=== PATIENT | male | born 1930 | race Caucasian/White ===

== ENCOUNTER 2017-07-20 16:04 | Outpatient (CLI) | payer MEDICARE, OTHER | END 2017-07-20 16:05 | disposition EMS.NT | LOC: EMS 16:04 | PROVIDERS: ATTEND Surgery | DX: Z03.89 Encounter for observation for other suspected diseases and conditions ruled out (principal) ==

== ENCOUNTER 2017-07-21 12:48 | Emergency (ER) | payer MEDICARE, OTHER ==
[2017-07-21 13:00] VITALS: BP 176/85
--- NOTE | 2017-07-21 13:34 | XRAY Report ---
EXAM: RIGHT SHOULDER RADIOGRAPHY EXAM DATE: 07/21/2017 01:27 PM. CLINICAL HISTORY: Right shoulder pain. COMPARISON: None. TECHNIQUE: 3 views. FINDINGS: Bones: No acute fracture or bony lesion. Type 1/2 acromion. Degenerative osteophyte formation. Joints: Normal alignment. Moderate to marked narrowing of the right acromioclavicular and mild narrow ing of the right glenohumeral joint. No dislocation. Soft tissues: Right shoulder calcific tendinosis. Peripheral interstitium of the right lung is promin ent. Right ribs are unremarkable. IMPRESSION: 1. No acute osseous abnormalities. Normal alignment. 2. Degenerative changes of the right shoulder. 3. Right shoulder calcific tendinosis. [facility] Referring Provider Line: [phone] SITE ID: [id number]
--- NOTE | 2017-07-21 15:01 | ED Physician Documentation ---
PD HPI UPPER EXT INJURY - Stated complaint Stated Complaint: SHOULDER PX - Chief complaint Chief Complaint: Ext Problem - History obtained from History obtained from: Patient - History of Present Illness Location: Right, Shoulder Type of injury: No: Fall, Twist, Blunt / blow Where injury occurred: Home Timing - onset: How many days ago (3 days of pain in right posterior shoulder. Denies chest pain. No noted injury. Hurts with reaching out and up. He called PMD office and referred to ER. Notes some mild cough but no fevers, dyspnea, lightheadedness.) Timing - duration: Days Timing - details: Gradual onset, Still present, Waxing and waning Worsened by: Moving. No: Palpating Associated symptoms: No: Weakness, Numbness, Swelling, Discolored Similar symptoms before: Has not had sx before Recently seen: Not recently seen Review of Systems Constitutional: denies: Fever, Chills Nose: denies: Rhinorrhea / runny nose, Congestion Throat: denies: Sore throat Cardiac: denies: Chest pain / pressure, Palpitations Respiratory: reports: Wheezing. denies: Dyspnea, Cough GI: denies: Nausea, Vomiting, Diarrhea Skin: denies: Rash Neurologic: denies: Generalized weakness, Focal weakness, Numbness, Altered mental status PD PAST MEDICAL HISTORY - Past Medical History Past Medical History: Yes Cardiovascular: High cholesterol, Other Respiratory: Asthma Neuro: Dementia Other Past Medical History: hx of stroke (3) - Past Surgical History Past Surgical History: Yes Cardiovascular: Other - Present Medications Home Medications: Ambulatory Orders Medication Instructions Recorded Confirmed Albuterol Sulf [Ventolin Hfa 1 - 2 puffs INH Q4HR PRN #1 inhaler 07/21/17 Inhaler] Aspirin [Adult Aspirin Regimen] 81 mg PO DAILY 07/21/17 07/21/17 Atorvastatin [Lipitor] 10 mg ORAL DAILY 07/21/17 07/21/17 Dexamethasone [Decadron] 4 mg PO DAILY #5 tablet 07/21/17 - Allergies Allergies/Adverse Reactions: Allergies Allergy/AdvReac Type Severity Reaction Status Date / Time No Known Drug Allergies Allergy Verified 07/21/17 13:00 - Social History Does the pt smoke?: No Smoking Status: Never smoker Does the pt drink ETOH?: No Does the pt have substance abuse?: No - Immunizations Immunizations are current?: Yes - POLST Patient has POLST: No PD ED PE NORMAL - Vitals Vital signs reviewed: Yes - General General: Alert and oriented X 3, No acute distress, Well developed/nourished - HEENT HEENT: Pharynx benign - Neck Neck: Supple, no meningeal sign, No bony TTP, No adenopathy - Cardiac Cardiac: RRR, No murmur - Respiratory Respiratory: No: Clear bilaterally (no coarse sounds but does have mild general wheezing. ) - Abdomen Abdomen: Soft, Non tender - Back Back: No CVA TTP - Derm Derm: Normal color, Warm and dry, No rash - Extremities Extremities: Other (riht suprascapular area with some local tenderness. Pain in that area with reaching arm backward and abduction. Not hurting with internal nor external rotation with arm to side. ) - Neuro Neuro: Alert and oriented X 3, No motor deficit, Normal speech Results - Vitals Vitals: Oxygen O2 Source Room air - Rads (name of study) shoulder right Radiology: Prelim report reviewed (arthritic changes; no acute fractures), EMP read contemporaneously PD MEDICAL DECISION MAKING - ED course Complexity details: reviewed results, considered differential (sounds like muscular shoulder pain and not the joint itself and does not seem pleuritic. Shoulder xray done but does show the majority oflung on that side which is normal. ), d/w patient, d/w family Departure - Departure Disposition: 01 Home, Self Care Clinical Impression: Wheezing Shoulder pain, acute Qualifiers: Laterality: right Qualified Code(s): M25.511 - Pain in right shoulder Condition: Stable Record reviewed to determine appropriate education?: Yes Instructions: ED Shoulder Pain [facility] Follow-Up: Nuris Byrne PA-C [Primary Care Provider] - Prescriptions: Albuterol Sulf [Ventolin Hfa Inhaler] 1 - 2 puffs INH Q4HR PRN #1 inhaler PRN Reason: Shortness Of Air/Wheezing Dexamethasone [Decadron] 4 mg PO DAILY #5 tablet Comments: His shoulder seems okay at this point. It does not sound like lung or other referred type pains. Given that he has had sounds of wheezing over the recent past, we can give an albuterol inhaler 2 puffs 2 or 3 times a day for the next week or 2. Decadron daily for 5 more days can help with pain in the shoulder if it is due to arthritis and can also help with some of the wheezing. Follow- up with your primary care later this week, call for an appointment. Add Tylenol or ibuprofen type medicines if needed for the shoulder pain. Discharge Date/Time: 07/21/17 15:33
[2017-07-21] MEDS ORDERED: DEXAMETHASONE 10 MG/ML VIAL PO STA (15:15)
[2017-07-21] MEDS ORDERED: CHERRY SYRUP 10 ML UDC PO ONE (15:33)
== END 2017-07-21 15:33 | disposition home or self-care (01) ==
LOC: ED 12:48
DX: M25.511 Pain in right shoulder (principal); R06.2 Wheezing; F03.90 Unspecified dementia, unspecified severity, without behavioral disturbance, psychotic disturbance, mood disturbance, and anxiety; E78.00 Pure hypercholesterolemia, unspecified; Z86.73 Personal history of transient ischemic attack (TIA), and cerebral infarction without residual deficits; Z79.82 Long term (current) use of aspirin
CPT/HCPCS: 73030; 99283; A9270

== ENCOUNTER 2017-11-21 11:02 | Outpatient (CLI) | payer MEDICARE, OTHER ==
[2017-11-21 18:24] LABS: ALBUMIN 3.6 g/dL (3.2-5.5); ALBUMIN/GLOBULIN RATIO 1.2 (1.0-2.2); BILIRUBIN,TOTAL 0.8 mg/dL (0.2-1.0); CALCIUM 8.6 mg/dL (8.5-10.3); CREATININE 1.1 mg/dL (0.6-1.2); TOTAL PROTEIN 6.5 g/dL (6.7-8.2)
[2017-11-21 18:36] LABS: BASOPHILS # (AUTO) 0.1 10^3/uL (0.0-0.1); BASOPHILS % (AUTO) 0.9 %; EOSINOPHILS # (AUTO) 0.3 10^3/uL (0.0-0.7); EOSINOPHILS % (AUTO) 4.5 %; HGB - HEMOGLOBIN 13.7 g/dL (14.0-18.0); LYMPHOCYTES # (AUTO) 1.6 10^3/uL (1.5-3.5); LYMPHOCYTES % (AUTO) 21.5 %; MEAN CORPUSCULAR HEMOGLOBIN 32.2 pg (27.0-31.0); MEAN CORPUSCULAR HGB CONC 32.7 g/dL (32.0-36.0); MEAN CORPUSCULAR VOLUME 98.5 fL (80.0-94.0); MONOCYTES # (AUTO) 0.7 10^3/uL (0.0-1.0); MONOCYTES % (AUTO) 9.7 %; NEUTROPHILS # (AUTO) 4.6 10^3/uL (1.5-6.6); NEUTROPHILS % (AUTO) 63.4 %; RED BLOOD COUNT 4.27 10^6/uL (4.70-6.10); RED CELL DISTRIBUTION WIDTH 13.1 % (12.0-15.0); WHITE BLOOD COUNT 7.3 x10^3/uL (4.8-10.8)
[2017-11-21 18:37] LABS: PLATELET ESTIMATE, MANUAL NORMAL (130-450,000) (NORMAL); PLATELET MORPHOLOGY NORMAL APPEARANCE (NORMAL)
== END 2017-11-21 11:03 | disposition home or self-care (01) ==
LOC: LAB.F 11:02
PROVIDERS: ATTEND Internal Medicine
DX: F03.90 Unspecified dementia, unspecified severity, without behavioral disturbance, psychotic disturbance, mood disturbance, and anxiety (principal)
CPT/HCPCS: 36415; 80053; 85025

== ENCOUNTER 2018-01-06 08:00 | Outpatient (CLI) | payer MEDICARE, OTHER | END 2018-01-06 23:59 | LOC: LAB.R 08:00 | PROVIDERS: ATTEND Physician Assistant Medical | DX: R19.7 Diarrhea, unspecified (principal) | CPT/HCPCS: 87493 ==

== ENCOUNTER 2018-12-16 13:41 | Outpatient (CLI) | payer MEDICARE, OTHER | END 2018-12-16 13:42 | disposition home or self-care (01) | LOC: LAB 13:41 | PROVIDERS: ATTEND Family Medicine | DX: Z00.00 Encounter for general adult medical examination without abnormal findings (principal) | CPT/HCPCS: 36415; 81599; 86480 ==